=== PATIENT | female | born 1965 ===

== ENCOUNTER 2016-12-08 12:58 | Emergency (ER) | payer MEDICAID ==
[~2016-12-08] VITALS: Ht 180.3 cm; Wt 81.7 kg
[2016-12-08 16:04] VITALS: BP 147/110
== END 2016-12-08 16:04 | disposition home or self-care (01) ==
LOC: ED 12:58
DX: S80.02XA Contusion of left knee, initial encounter (principal); I10 Essential (primary) hypertension; F15.10 Other stimulant abuse, uncomplicated; W17.89XA Other fall from one level to another, initial encounter; Y93.89 Activity, other specified; Y99.8 Other external cause status; Y92.89 Other specified places as the place of occurrence of the external cause